=== PATIENT | male | born 1975 | race Caucasian/White ===

== ENCOUNTER 2018-10-05 17:55 | Emergency (ER) | payer MEDICARE ==
[2018-10-05] MEDS ORDERED: KETOROLAC 30 MG/ML VIAL IVP STA (18:36)
[2018-10-05] MEDS ORDERED: SODIUM CHLORIDE 0.9% 1,000 ML IV ONE (18:36)
[2018-10-05] MEDS ORDERED: HYDROmorphone 1 MG/ML CARPUJECT IVP STA (18:36)
--- NOTE | 2018-10-05 18:38 | ED Physician Documentation ---
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 He has a history of renal colic and has required intervention before whose had one day of general abdominal pain and bloating now radiating to the right flank associated with decreased appetite but no nausea or vomiting. He has urinary frequency but no dysuria. He denies any trouble with his bowel movements. He says he feels that this is consistent with prior episodes of renal colic. No gross hematuria.) Review of Systems Ten Systems: 10 systems reviewed and negative Constitutional: denies: Fever, Chills Cardiac: reports: Reviewed and negative Respiratory: reports: Reviewed and negative PD PAST MEDICAL HISTORY - Past Medical History Past Medical History: Yes Cardiovascular: None Respiratory: None Neuro: Other Endocrine/Autoimmune: None GI: None : Kidney stones HEENT: None Psych: None Musculoskeletal: None Derm: None Other Past Medical History: spastic parhesis - Past Surgical History Past Surgical History: Yes Ortho: ACL reconstruction, Spine surgery - Present Medications Home Medications: Ambulatory Orders Medication Instructions Recorded Confirmed Ibuprofen [Motrin] 800 mg PO Q8H PRN #30 tablet 10/05/18 Oxycodone HCl/Acetaminophen 1 - 2 each PO Q6H PRN #14 tablet 10/05/18 [Percocet 5-325 mg Tablet] Tamsulosin [Flomax] 0.4 mg PO DAILY #14 capsule 10/05/18 - Allergies Allergies/Adverse Reactions: Allergies Allergy/AdvReac Type Severity Reaction Status Date / Time codeine Allergy Rash Verified 10/05/18 18:11 - Social History Does the pt smoke?: No Smoking Status: Never smoker Does the pt drink ETOH?: Yes ETOH Use: Beer, Liquor Does the pt have substance abuse?: No - Family History Family history: reports: Non contributory - Immunizations Immunizations are current?: Yes - POLST Patient has POLST: No PD ED PE NORMAL - Vitals Vital signs reviewed: Yes - General General: Alert and oriented X 3, No acute distress - Abdomen Abdomen: Normal bowel sounds, Soft, Non tender - Back Back: No CVA TTP, No spinal TTP - Derm Derm: Normal color, Warm and dry - Neuro Neuro: Alert and oriented X 3, Normal speech Results - Vitals Vitals: Vital Signs - 24 hr 10/05/18 18:09 Temperature 36.6 C Heart Rate 74 Respiratory 15 Rate Blood Pressure 136/101 H O2 Saturation 98 Oxygen O2 Source CPAP - Labs Labs: Laboratory Tests 10/05/18 10/05/18 10/05/18 18:35 18:39 18:39 WBC 8.6 RBC 4.80 Hgb 15.3 Hct 45.1 MCV 93.8 MCH 31.8 H MCHC 33.9 RDW 14.2 Plt Count 282 MPV 8.6 Neut # (Auto) 6.4 Lymph # (Auto) 1.5 [place] # (Auto) 0.6 Eos # (Auto) 0.0 Baso # (Auto) 0.1 Absolute Nucleated RBC 0.00 Nucleated RBC % 0.0 Sodium 137 Potassium 3.6 Chloride 101 Carbon Dioxide 26 Anion Gap 10.0 BUN 16 Creatinine 0.9 Estimated GFR (MDRD) 92 Glucose 118 H Calcium 9.2 Total Bilirubin 0.8 AST 30 ALT 27 Alkaline Phosphatase 71 Total Protein 7.4 Albumin 4.4 Globulin 3.0 Albumin/Globulin Ratio 1.5 Lipase 38 Urine Color DARK YELLOW Urine Clarity HAZY Urine pH 7.5 Ur Specific [place] 1.015 Urine Protein TRACE Urine Glucose (UA) NEGATIVE Urine Ketones TRACE Urine Occult Blood LARGE H Urine Nitrite NEGATIVE Urine Bilirubin NEGATIVE Urine Urobilinogen 1 (NORMAL) Ur Leukocyte Esterase TRACE H Urine RBC TNTC H Urine WBC 6-10 H Ur Squamous Epith Cells NONE SEEN Urine Bacteria None Seen Ur Microscopic Review INDICATED Urine Culture Comments INDICATED - Rads (name of study) CT KUB Radiology: EMP read contemporaneously (Mildly obstructing 3 mm distal right UVJ stone, small bilateral infrarenal calculi) PD MEDICAL DECISION MAKING - ED course ED course: 42-year-old gentleman with history of renal colic presents with symptoms concerning for same proven on CT which was done because it has been a long time since he has had a symptomatic kidney stone and he has needed them removed in the past. He was pain-free after Toradol and Dilaudid here. He was also administered Flomax. Departure - Departure Clinical Impression: Renal colic Condition: Good Instructions: ED Stone Renal W Colic Prescriptions: Ibuprofen [Motrin] 800 mg PO Q8H PRN #30 tablet PRN Reason: PAIN &/OR FEVER Oxycodone HCl/Acetaminophen [Percocet 5-325 mg Tablet] 1 - 2 each PO Q6H PRN #14 tablet PRN Reason: pain Tamsulosin [Flomax] 0.4 mg PO DAILY #14 capsule Comments: If not better within a week, follow-up with urologist with a copy of the CAT scan on CD. You could go back to [facility] where he were treated before, another option would be the [facility]. Their phone number is [phone]. Return if worse or if pain is uncontrolled. Do not drink or drive while taking narcotic pain medication. Note that many narcotic pain relievers also contain Tylenol/acetaminophen. Please ensure that your total dose of acetaminophen from all sources does not exceed 3 g (3000 mg) per day. You may get constipated while on this medication. Take a stool softener such as Colace twice a day while you are on it. Also add an [id number] laxative such as senna or MiraLAX on any day that you do not have a bowel movement. If you received a narcotic pain medication or sedative while in the emergency department, do not drive for the next 24 hours. Your blood pressure was elevated today on check into the emergency department. This does not mean that you have hypertension, it is a common phenomenon to come to the emergency department and have elevated blood pressure. I recommend that you see your primary care physician within the week to have it rechecked when you are feeling better.
[2018-10-05 18:54] LABS: BASOPHILS # (AUTO) 0.1 10^3/uL (0.0-0.1); BASOPHILS % (AUTO) 0.7 %; EOSINOPHILS % (AUTO) 0.4 %; HGB - HEMOGLOBIN 15.3 g/dL (14.0-18.0); LYMPHOCYTES # (AUTO) 1.5 10^3/uL (1.5-3.5); LYMPHOCYTES % (AUTO) 17.1 %; MEAN CORPUSCULAR HEMOGLOBIN 31.8 pg (27.0-31.0); MEAN CORPUSCULAR HGB CONC 33.9 g/dL (32.0-36.0); MEAN CORPUSCULAR VOLUME 93.8 fL (80.0-94.0); MEAN PLATELET VOLUME 8.6 fL (7.4-11.4); MONOCYTES # (AUTO) 0.6 10^3/uL (0.0-1.0); MONOCYTES % (AUTO) 7.4 %; NEUTROPHILS # (AUTO) 6.4 10^3/uL (1.5-6.6); NEUTROPHILS % (AUTO) 74.4 %; PLT - PLATELET COUNT 282 10^3/uL (130-450); RED CELL DISTRIBUTION WIDTH 14.2 % (12.0-15.0); WHITE BLOOD COUNT 8.6 x10^3/uL (4.8-10.8)
[2018-10-05 19:06] LABS: ALBUMIN 4.4 g/dL (3.2-5.5); ALBUMIN/GLOBULIN RATIO 1.5 (1.0-2.2); BILIRUBIN,TOTAL 0.8 mg/dL (0.2-1.0); CALCIUM 9.2 mg/dL (8.5-10.3); CREATININE 0.9 mg/dL (0.6-1.2); TOTAL PROTEIN 7.4 g/dL (6.7-8.2)
[2018-10-05 19:13] LABS: BILIRUBIN,URINE NEGATIVE (NEGATIVE); GLUCOSE, URINE (UA) NEGATIVE (NEGATIVE); KETONES,URINE (UA) TRACE mg/dL (NEGATIVE); LEUKOCYTE ESTERASE, URINE TRACE (NEGATIVE); NITRITE,URINE NEGATIVE (NEGATIVE); OCCULT BLOOD,URINE LARGE (NEGATIVE); PH,URINE 7.5 PH (5.0-7.5); PROTEIN,URINE TRACE mg/dL (NEGATIVE); UROBILINOGEN,URINE 1 (NORMAL) E.U./dL (NORMAL)
[2018-10-05] MEDS ORDERED: TAMSULOSIN 0.4 MG CAPSULE PO STA (19:16)
[2018-10-05 19:29] LABS: CLARITY,URINE HAZY (CLEAR)
[2018-10-05 19:30] LABS: BACTERIA,URINE None Seen /HPF (None Seen); RBC,URINE TNTC /HPF (0-5); SQUAMOUS EPITHELIAL CELL,UR NONE SEEN (<= Few)
--- NOTE | 2018-10-05 19:36 | CT Report ---
Reason: abd/R flank pain Procedure Date: 10/05/2018 Accession Number: [id number] / [id number] Procedure: CT - Abdomen/Pelvis WO CPT Code: FULL RESULT: EXAM: CT ABDOMEN AND PELVIS (CT KUB) EXAM DATE: 10/05/2018 07:05 PM. CLINICAL HISTORY: Abd/R flank pain. COMPARISONS: None. TECHNIQUE: Routine axial helical CT imaging was performed through the abdomen and pelvis without IV contrast. Reconstructions: Coronal and sagittal. In accordance with CT protocol optimization, one or more of the following dose reduction techniques were utilized for this exam: automated exposure control, adjustment of mA and/or KV based on patient size, or use of iterative reconstructive technique. FINDINGS: Lung Bases: Unremarkable. Right Kidney/Ureter: There are at least 6 intrarenal calculi scattered throughout the kidney with the largest at the anterior lower pole measuring up to 4 mm. There is mild right hydronephrosis and hydroureter. There is minimal proximal periureteral fat stranding. There is a 3 mm rounded distal right ureteral calculus at the mid femoral head level just prior to the ureterovesical junction. Left Kidney/Ureter: There are at least 3 left intrarenal calculi measuring up to 3 mm. No hydronephrosis or hydroureter. No perinephric or periureteral fat stranding. No ureteral calculus. Other Solid Organs: Noncontrast images of the solid organs are grossly unremarkable. Gallbladder/Bile Ducts: Unremarkable. Peritoneal Cavity: Unopacified stomach and small bowel are nondistended. The appendix is normal. There is a small amount of formed stool throughout the colon. There is no focal pericolonic fat stranding. There is no lymphadenopathy, ascites, or pneumoperitoneum. Pelvic Organs: Small volume bladder without stones. Prostate gland and seminal vesicles unremarkable. Vasculature: Unremarkable. Other: Chronic bilateral L5 pars interarticularis defects. Grade 1 anterolisthesis L5 on S1. Bone graft material at L5-S1 disk space. Bilateral pedicle screws and longitudinal stabilization rods spanning L5-S1. Prominent Schmorl's node formation at the lower endplate of L3. IMPRESSION: 1. Mildly obstructing 3 mm distal right ureteral calculus just prior to the ureterovesical junction. Plain abdominal radiograph could be obtained to determine the radiopacity of this stone for follow-up. 2. Small bilateral intrarenal calculi. RADIA
[2018-10-05] MEDS ORDERED: oxyCODONE/ACET 5/325 Prepack 4 PO STA (19:44)
[2018-10-05 19:46] VITALS: BP 118/72
== END 2018-10-05 19:59 | disposition home or self-care (01) ==
LOC: ED 17:55
DX: N20.0 Calculus of kidney (principal); Z87.442 Personal history of urinary calculi
CPT/HCPCS: 36415; 74176; 80053; 81001; 83690; 85025; 87086; 96361; 96374; 99283; A9270; J1170; 81003

== ENCOUNTER 2018-10-07 05:37 | Emergency (ER) | payer MEDICARE ==
--- NOTE | 2018-10-07 05:48 | ED Physician Documentation ---
PD HPI ABD PAIN - Stated complaint Stated Complaint: SIDE PX - Chief complaint Chief Complaint: Abd Pain - History obtained from History obtained from: Patient - History of Present Illness Timing - onset: How many days ago (3) Timing - details: Abrupt onset, Intermittant, Waxing and waning Pain level now: 6 Quality: Pain Radiation: Right flank Improved by: No: Eating, Laying still, Vomiting, BM, Position, Meds Worsened by: No: Eating, Moving, Breathing, Position, Palpation Associated symptoms: Nausea. No: Fever, Vomiting, Dysuria Similar symptoms before: Diagnosis (Renal colic) Recently seen: Emergency Dept - Additional information Additional information: T+R from this ED 2 days ago for same symptoms, diagnosed with renal colic. Returns due to worsening right flank pain, episodic. Review of Systems Constitutional: reports: Reviewed and negative Cardiac: reports: Reviewed and negative Respiratory: reports: Reviewed and negative GI: reports: Abdominal Pain, Nausea. denies: Vomiting : denies: Dysuria, Frequency PD PAST MEDICAL HISTORY - Past Medical History Cardiovascular: None Respiratory: None Neuro: Other Endocrine/Autoimmune: None GI: None : Kidney stones HEENT: None Psych: None Musculoskeletal: None Derm: None - Past Surgical History Past Surgical History: Yes Ortho: ACL reconstruction, Spine surgery - Present Medications Home Medications: Ambulatory Orders Medication Instructions Recorded Confirmed HYDROmorphone [Dilaudid] 2 mg PO Q4-6H PRN #15 tablet 10/05/18 Ibuprofen [Motrin] 800 mg PO Q8H PRN #30 tablet 10/05/18 Tamsulosin [Flomax] 0.4 mg PO DAILY #14 capsule 10/05/18 HYDROmorphone [Dilaudid] 2 - 4 mg PO Q4-6H PRN #20 tablet 10/07/18 Ondansetron Odt [Zofran] 4 mg TL Q6H PRN #14 tablet 10/07/18 - Allergies Allergies/Adverse Reactions: Allergies Allergy/AdvReac Type Severity Reaction Status Date / Time codeine Allergy Rash Verified 10/07/18 05:49 - Social History Does the pt smoke?: No Smoking Status: Never smoker Does the pt drink ETOH?: Yes Does the pt have substance abuse?: No - Immunizations Immunizations are current?: Yes - POLST Patient has POLST: No PD ED PE NORMAL - Vitals Vital signs reviewed: Yes - General General: Alert and oriented X 3, Well developed/nourished, Other (appears to be in moderate painful discomfort) - Cardiac Cardiac: RRR, No murmur - Respiratory Respiratory: No respiratory distress, Clear bilaterally - Abdomen Abdomen: Soft, Non tender - Back Back: No CVA TTP - Derm Derm: Normal color, Warm and dry, No rash Results - Vitals Vitals: Oxygen O2 Source Room air PD MEDICAL DECISION MAKING - ED course Complexity details: reviewed results, re-evaluated patient, considered differential, d/w patient, d/w family ED course: appears comfortable after IV fluids, dilaudid, and zofran. patient reports good symptomatic relief and is comfortable with d/c home Departure - Departure Disposition: Home, Self Care Clinical Impression: Renal colic Condition: Good Instructions: ED Stone Renal W Colic Follow-Up: Linda Banerjee MD [Primary Care Provider] - Prescriptions: HYDROmorphone [Dilaudid] 2 - 4 mg PO Q4-6H PRN #20 tablet PRN Reason: Pain Ondansetron Odt [Zofran] 4 mg TL Q6H PRN #14 tablet PRN Reason: Nausea / Vomiting Discharge Date/Time: 10/07/18 08:10
[2018-10-07] MEDS ORDERED: ONDANSETRON 4 MG/2 ML VIAL IVP STA (06:01)
[2018-10-07] MEDS ORDERED: HYDROmorphone 1 MG/ML CARPUJECT IVP STA (06:01)
[2018-10-07] MEDS ORDERED: SODIUM CHLORIDE 0.9% 1,000 ML IV STA (06:01)
[2018-10-07] MEDS ORDERED: KETOROLAC 30 MG/ML VIAL IVP STA (06:01)
[2018-10-07 06:51] VITALS: BP 110/65
== END 2018-10-07 08:10 | disposition home or self-care (01) ==
LOC: ED 05:37
DX: N23 Unspecified renal colic (principal); R11.0 Nausea; Z87.442 Personal history of urinary calculi
CPT/HCPCS: 96361; 96374; 96375; 99283; J1170

== ENCOUNTER 2019-03-27 09:04 | Outpatient (CLI) | payer MEDICAID, MEDICARE ==
[2019-03-27 17:46] LABS: BASOPHILS % (AUTO) 0.8 %; EOSINOPHILS # (AUTO) 0.2 10^3/uL (0.0-0.7); EOSINOPHILS % (AUTO) 4.1 %; LYMPHOCYTES # (AUTO) 1.5 10^3/uL (1.5-3.5); LYMPHOCYTES % (AUTO) 31.1 %; MEAN CORPUSCULAR HEMOGLOBIN 30.4 pg (27.0-31.0); MEAN CORPUSCULAR HGB CONC 31.4 g/dL (32.0-36.0); MEAN CORPUSCULAR VOLUME 96.7 fL (80.0-94.0); MEAN PLATELET VOLUME 10.2 fL (7.4-11.4); MONOCYTES # (AUTO) 0.6 10^3/uL (0.0-1.0); MONOCYTES % (AUTO) 13.1 %; NEUTROPHILS # (AUTO) 2.4 10^3/uL (1.5-6.6); NEUTROPHILS % (AUTO) 50.7 %; PLT - PLATELET COUNT 296 10^3/uL (130-450); RED BLOOD COUNT 4.28 10^6/uL (4.70-6.10); RED CELL DISTRIBUTION WIDTH 14.1 % (12.0-15.0); WHITE BLOOD COUNT 4.8 x10^3/uL (4.8-10.8)
[2019-03-27 18:01] LABS: ALBUMIN 4.1 g/dL (3.2-5.5); ALBUMIN/GLOBULIN RATIO 1.1 (1.0-2.2); BILIRUBIN,TOTAL 0.5 mg/dL (0.2-1.0); CALCIUM 9.4 mg/dL (8.5-10.3); CREATININE 0.9 mg/dL (0.6-1.2); TOTAL PROTEIN 7.7 g/dL (6.7-8.2)
== END 2019-03-27 09:05 | disposition home or self-care (01) ==
LOC: LAB.S 09:04
PROVIDERS: ATTEND Internal Medicine Hematology & Oncology
DX: C18.9 Malignant neoplasm of colon, unspecified (principal)
CPT/HCPCS: 36415; 80053; 85025

== ENCOUNTER 2019-04-10 08:16 | Outpatient (CLI) | payer MEDICARE ==
[2019-04-10 09:58] LABS: BASOPHILS % (AUTO) 0.7 %; EOSINOPHILS # (AUTO) 0.2 10^3/uL (0.0-0.7); EOSINOPHILS % (AUTO) 2.6 %; HGB - HEMOGLOBIN 13.4 g/dL (14.0-18.0); LYMPHOCYTES % (AUTO) 33.5 %; MEAN CORPUSCULAR VOLUME 93.7 fL (80.0-94.0); MEAN PLATELET VOLUME 10.4 fL (7.4-11.4); MONOCYTES # (AUTO) 0.9 10^3/uL (0.0-1.0); MONOCYTES % (AUTO) 15.2 %; NEUTROPHILS # (AUTO) 2.9 10^3/uL (1.5-6.6); NEUTROPHILS % (AUTO) 47.5 %; PLT - PLATELET COUNT 233 10^3/uL (130-450); RED BLOOD COUNT 4.47 10^6/uL (4.70-6.10); RED CELL DISTRIBUTION WIDTH 14.4 % (12.0-15.0); WHITE BLOOD COUNT 6.1 x10^3/uL (4.8-10.8)
[2019-04-10 10:11] LABS: ALBUMIN 3.8 g/dL (3.2-5.5); ALBUMIN/GLOBULIN RATIO 1.1 (1.0-2.2); BILIRUBIN,TOTAL 0.3 mg/dL (0.2-1.0); CALCIUM 9.2 mg/dL (8.5-10.3); TOTAL PROTEIN 7.2 g/dL (6.7-8.2)
== END 2019-04-10 08:17 | disposition home or self-care (01) ==
LOC: LAB.S 08:16
PROVIDERS: ATTEND Internal Medicine Hematology & Oncology
DX: C18.9 Malignant neoplasm of colon, unspecified (principal)
CPT/HCPCS: 36415; 80053; 85025

== ENCOUNTER 2019-04-24 09:22 | Outpatient (CLI) | payer MEDICARE ==
[2019-04-24 18:07] LABS: BASOPHILS % (AUTO) 0.4 %; EOSINOPHILS # (AUTO) 0.1 10^3/uL (0.0-0.7); EOSINOPHILS % (AUTO) 2.4 %; HGB - HEMOGLOBIN 13.6 g/dL (14.0-18.0); LYMPHOCYTES # (AUTO) 1.8 10^3/uL (1.5-3.5); LYMPHOCYTES % (AUTO) 36.2 %; MEAN CORPUSCULAR HEMOGLOBIN 28.8 pg (27.0-31.0); MEAN CORPUSCULAR HGB CONC 30.9 g/dL (32.0-36.0); MEAN PLATELET VOLUME 10.9 fL (7.4-11.4); MONOCYTES # (AUTO) 0.6 10^3/uL (0.0-1.0); MONOCYTES % (AUTO) 11.4 %; NEUTROPHILS # (AUTO) 2.4 10^3/uL (1.5-6.6); NEUTROPHILS % (AUTO) 49.4 %; PLT - PLATELET COUNT 163 10^3/uL (130-450); RED BLOOD COUNT 4.73 10^6/uL (4.70-6.10); RED CELL DISTRIBUTION WIDTH 14.8 % (12.0-15.0); WHITE BLOOD COUNT 4.9 x10^3/uL (4.8-10.8)
[2019-04-24 18:35] LABS: ALBUMIN 4.2 g/dL (3.2-5.5); ALBUMIN/GLOBULIN RATIO 1.1 (1.0-2.2); BILIRUBIN,TOTAL 0.4 mg/dL (0.2-1.0); CALCIUM 9.4 mg/dL (8.5-10.3); CREATININE 0.9 mg/dL (0.6-1.2); TOTAL PROTEIN 7.9 g/dL (6.7-8.2)
== END 2019-04-24 09:23 | disposition home or self-care (01) ==
LOC: LAB.S 09:22
PROVIDERS: ATTEND Internal Medicine Hematology & Oncology
DX: C18.9 Malignant neoplasm of colon, unspecified (principal)
CPT/HCPCS: 36415; 80053; 85025

== ENCOUNTER 2019-05-08 10:26 | Outpatient (CLI) | payer MEDICARE ==
[2019-05-08 17:20] LABS: BASOPHILS % (AUTO) 0.4 %; EOSINOPHILS # (AUTO) 0.1 10^3/uL (0.0-0.7); EOSINOPHILS % (AUTO) 1.1 %; HGB - HEMOGLOBIN 13.8 g/dL (14.0-18.0); LYMPHOCYTES # (AUTO) 1.5 10^3/uL (1.5-3.5); LYMPHOCYTES % (AUTO) 31.6 %; MEAN CORPUSCULAR HEMOGLOBIN 29.7 pg (27.0-31.0); MEAN CORPUSCULAR VOLUME 92.9 fL (80.0-94.0); MEAN PLATELET VOLUME 10.6 fL (7.4-11.4); MONOCYTES # (AUTO) 0.7 10^3/uL (0.0-1.0); NEUTROPHILS # (AUTO) 2.4 10^3/uL (1.5-6.6); NEUTROPHILS % (AUTO) 51.5 %; PLT - PLATELET COUNT 198 10^3/uL (130-450); RED BLOOD COUNT 4.64 10^6/uL (4.70-6.10); RED CELL DISTRIBUTION WIDTH 15.7 % (12.0-15.0); WHITE BLOOD COUNT 4.7 x10^3/uL (4.8-10.8)
[2019-05-08 17:46] LABS: ALBUMIN 4.2 g/dL (3.2-5.5); ALBUMIN/GLOBULIN RATIO 1.1 (1.0-2.2); BILIRUBIN,TOTAL 0.4 mg/dL (0.2-1.0); CALCIUM 9.1 mg/dL (8.5-10.3); CREATININE 0.8 mg/dL (0.6-1.2); TOTAL PROTEIN 7.9 g/dL (6.7-8.2)
== END 2019-05-08 10:27 | disposition home or self-care (01) ==
LOC: LAB.S 10:26
PROVIDERS: ATTEND Internal Medicine Hematology & Oncology
DX: C18.9 Malignant neoplasm of colon, unspecified (principal)
CPT/HCPCS: 36415; 80053; 85025

== ENCOUNTER 2019-05-22 10:24 | Outpatient (CLI) | payer MEDICARE ==
[2019-05-22 18:01] LABS: BASOPHILS % (AUTO) 0.4 %; EOSINOPHILS # (AUTO) 0.1 10^3/uL (0.0-0.7); EOSINOPHILS % (AUTO) 2.4 %; HGB - HEMOGLOBIN 14.3 g/dL (14.0-18.0); LYMPHOCYTES # (AUTO) 1.7 10^3/uL (1.5-3.5); LYMPHOCYTES % (AUTO) 37.2 %; MEAN CORPUSCULAR HGB CONC 32.8 g/dL (32.0-36.0); MEAN CORPUSCULAR VOLUME 91.4 fL (80.0-94.0); MEAN PLATELET VOLUME 11.2 fL (7.4-11.4); MONOCYTES # (AUTO) 0.7 10^3/uL (0.0-1.0); MONOCYTES % (AUTO) 15.8 %; PLT - PLATELET COUNT 141 10^3/uL (130-450); RED BLOOD COUNT 4.77 10^6/uL (4.70-6.10); WHITE BLOOD COUNT 4.5 x10^3/uL (4.8-10.8)
[2019-05-22 18:34] LABS: ALBUMIN 4.1 g/dL (3.2-5.5); ALBUMIN/GLOBULIN RATIO 1.1 (1.0-2.2); ALKALINE PHOSPHATASE 168 IU/L (42-121); ALT ALANINE AMINOTRANSFERASE 134 IU/L (10-60); AST ASPARTATE AMINOTRANSFERASE 96 IU/L (10-42); BILIRUBIN,TOTAL < 0.2 mg/dL (0.2-1.0); BUN - BLOOD UREA NITROGEN 17 mg/dL (6-20); GFR - MDRD 81 (>89); TOTAL PROTEIN 7.8 g/dL (6.7-8.2)
[2019-05-22 18:38] LABS: CALCIUM 9.4 mg/dL (8.5-10.3); CARBON DIOXIDE - CO2 27 mmol/L (21-32); CHLORIDE 104 mmol/L (101-111); GLUCOSE 95 mg/dL (70-100); SODIUM 139 mmol/L (135-145)
== END 2019-05-22 10:25 | disposition home or self-care (01) ==
LOC: LAB.S 10:24
PROVIDERS: ATTEND Internal Medicine Hematology & Oncology
DX: C18.9 Malignant neoplasm of colon, unspecified (principal)
CPT/HCPCS: 36415; 80053; 85025

== ENCOUNTER 2019-06-05 10:10 | Outpatient (CLI) | payer MEDICARE ==
[2019-06-05 17:17] LABS: BASOPHILS % (AUTO) 0.5 %; EOSINOPHILS # (AUTO) 0.1 10^3/uL (0.0-0.7); EOSINOPHILS % (AUTO) 1.9 %; HGB - HEMOGLOBIN 14.1 g/dL (14.0-18.0); LYMPHOCYTES # (AUTO) 1.8 10^3/uL (1.5-3.5); LYMPHOCYTES % (AUTO) 29.8 %; MEAN CORPUSCULAR HEMOGLOBIN 29.7 pg (27.0-31.0); MEAN CORPUSCULAR HGB CONC 32.6 g/dL (32.0-36.0); MEAN CORPUSCULAR VOLUME 91.1 fL (80.0-94.0); MEAN PLATELET VOLUME 11.4 fL (7.4-11.4); MONOCYTES % (AUTO) 16.4 %; NEUTROPHILS % (AUTO) 51.2 %; PLT - PLATELET COUNT 128 10^3/uL (130-450); RED BLOOD COUNT 4.74 10^6/uL (4.70-6.10); RED CELL DISTRIBUTION WIDTH 17.8 % (12.0-15.0); WHITE BLOOD COUNT 5.9 x10^3/uL (4.8-10.8)
[2019-06-05 18:05] LABS: BILIRUBIN,TOTAL 0.3 mg/dL (0.2-1.0); CALCIUM 9.2 mg/dL (8.5-10.3); CREATININE 0.8 mg/dL (0.6-1.2); TOTAL PROTEIN 7.9 g/dL (6.7-8.2)
== END 2019-06-05 10:11 | disposition home or self-care (01) ==
LOC: LAB.S 10:10
PROVIDERS: ATTEND Internal Medicine Hematology & Oncology
DX: C18.9 Malignant neoplasm of colon, unspecified (principal)
CPT/HCPCS: 36415; 80053; 85025

== ENCOUNTER 2019-06-19 10:54 | Outpatient (CLI) | payer MEDICARE ==
[2019-06-19 18:08] LABS: BASOPHILS % (AUTO) 0.4 %; EOSINOPHILS # (AUTO) 0.1 10^3/uL (0.0-0.7); HGB - HEMOGLOBIN 14.2 g/dL (14.0-18.0); LYMPHOCYTES # (AUTO) 1.8 10^3/uL (1.5-3.5); LYMPHOCYTES % (AUTO) 25.4 %; MEAN CORPUSCULAR HGB CONC 31.8 g/dL (32.0-36.0); MEAN CORPUSCULAR VOLUME 94.1 fL (80.0-94.0); MEAN PLATELET VOLUME 10.8 fL (7.4-11.4); MONOCYTES # (AUTO) 0.8 10^3/uL (0.0-1.0); NEUTROPHILS # (AUTO) 4.3 10^3/uL (1.5-6.6); NEUTROPHILS % (AUTO) 60.9 %; PLT - PLATELET COUNT 169 10^3/uL (130-450); RED BLOOD COUNT 4.74 10^6/uL (4.70-6.10); RED CELL DISTRIBUTION WIDTH 20.3 % (12.0-15.0)
[2019-06-19 18:15] LABS: ALBUMIN 4.1 g/dL (3.2-5.5); ALBUMIN/GLOBULIN RATIO 1.1 (1.0-2.2); BILIRUBIN,TOTAL 0.6 mg/dL (0.2-1.0); CALCIUM 9.7 mg/dL (8.5-10.3); TOTAL PROTEIN 7.8 g/dL (6.7-8.2)
[2019-06-19 19:18] LABS: PLATELET ESTIMATE, MANUAL NORMAL (130-450,000) (NORMAL); PLATELET MORPHOLOGY NORMAL APPEARANCE (NORMAL); RBC MORPHOLOGY (MULTIPLE) 1+ ANISOCYTOSIS (NORMAL)
== END 2019-06-19 10:55 | disposition home or self-care (01) ==
LOC: LAB.S 10:54
PROVIDERS: ATTEND Internal Medicine Hematology & Oncology
DX: C18.9 Malignant neoplasm of colon, unspecified (principal)
CPT/HCPCS: 36415; 80053; 85025

== ENCOUNTER 2019-07-03 10:05 | Outpatient (CLI) | payer MEDICAID, MEDICARE ==
[2019-07-03 17:19] LABS: BASOPHILS % (AUTO) 0.5 %; EOSINOPHILS # (AUTO) 0.1 10^3/uL (0.0-0.7); EOSINOPHILS % (AUTO) 1.7 %; HGB - HEMOGLOBIN 13.4 g/dL (14.0-18.0); LYMPHOCYTES # (AUTO) 1.5 10^3/uL (1.5-3.5); MEAN CORPUSCULAR HEMOGLOBIN 29.9 pg (27.0-31.0); MEAN CORPUSCULAR HGB CONC 32.8 g/dL (32.0-36.0); MEAN CORPUSCULAR VOLUME 91.3 fL (80.0-94.0); MEAN PLATELET VOLUME 11.1 fL (7.4-11.4); MONOCYTES # (AUTO) 0.6 10^3/uL (0.0-1.0); MONOCYTES % (AUTO) 14.6 %; NEUTROPHILS % (AUTO) 46.7 %; PLT - PLATELET COUNT 149 10^3/uL (130-450); RED BLOOD COUNT 4.48 10^6/uL (4.70-6.10); RED CELL DISTRIBUTION WIDTH 20.3 % (12.0-15.0); WHITE BLOOD COUNT 4.2 x10^3/uL (4.8-10.8)
[2019-07-03 17:30] LABS: ALBUMIN 3.9 g/dL (3.2-5.5); ALBUMIN/GLOBULIN RATIO 1.1 (1.0-2.2); BILIRUBIN,TOTAL 0.7 mg/dL (0.2-1.0); CALCIUM 9.5 mg/dL (8.5-10.3); CREATININE 0.9 mg/dL (0.6-1.2); TOTAL PROTEIN 7.3 g/dL (6.7-8.2)
[2019-07-03 17:43] LABS: PLATELET ESTIMATE, MANUAL NORMAL (130-450,000) (NORMAL); PLATELET MORPHOLOGY NORMAL APPEARANCE (NORMAL); RBC MORPHOLOGY (MULTIPLE) 1+ ANISOCYTOSIS (NORMAL)
== END 2019-07-03 10:06 | disposition home or self-care (01) ==
LOC: LAB.S 10:05
PROVIDERS: ATTEND Internal Medicine Hematology & Oncology
DX: C18.9 Malignant neoplasm of colon, unspecified (principal)
CPT/HCPCS: 36415; 80053; 85025

== ENCOUNTER 2020-10-23 09:14 | Outpatient (CLI) | payer MEDICARE ==
[2020-10-23 16:00] LABS: ALBUMIN 4.4 g/dL (3.2-5.5); ALBUMIN/GLOBULIN RATIO 1.4 (1.0-2.2); BILIRUBIN,TOTAL 0.6 mg/dL (0.2-1.0); CALCIUM 9.4 mg/dL (8.5-10.3); CREATININE 1.2 mg/dL (0.6-1.2); POTASSIUM 4.3 mmol/L (3.5-5.0); TOTAL PROTEIN 7.5 g/dL (6.7-8.2)
[2020-10-23 18:30] LABS: BASOPHILS % (AUTO) 1.4 %; EOSINOPHILS % (AUTO) 3.6 %; HCT - HEMATOCRIT 46.6 % (42.0-52.0); HGB - HEMOGLOBIN 15.2 g/dL (14.0-18.0); MEAN CORPUSCULAR HEMOGLOBIN 31.8 pg (27.0-31.0); MEAN CORPUSCULAR HGB CONC 32.6 g/dL (32.0-36.0); MEAN CORPUSCULAR VOLUME 97.5 fL (80.0-94.0); MEAN PLATELET VOLUME 10.6 fL (7.4-11.4); MONOCYTES % (AUTO) 10.3 %; NEUTROPHILS % (AUTO) 51.5 %; PLT - PLATELET COUNT 244 10^3/uL (130-450); RED BLOOD COUNT 4.78 10^6/uL (4.70-6.10); RED CELL DISTRIBUTION WIDTH 13.2 % (12.0-15.0); WHITE BLOOD COUNT 4.4 x10^3/uL (4.8-10.8)
[2020-10-23 18:40] LABS: ABNORMAL LYMPHS % (MANUAL) 0 %
[2020-10-23 21:05] LABS: BAND NEUTROPHILS % (MANUAL) 1 %; EOSINOPHILS # (MANUAL) 0.2 10^3/uL (0-0.7); LYMPHOCYTES # (MANUAL) 1.4 10^3/uL (1.5-3.5); LYMPHOCYTES % (MANUAL) 24 %; MONOCYTES # (MANUAL) 0.3 10^3/uL (0.0-1.0); NEUTROPHILS # (MANUAL) 2.5 10^3/uL (1.5-6.6); REACTIVE LYMPHS % (MANUAL) 8 %
[2020-10-23 21:06] LABS: DIFFERENTIAL COMMENT MANUAL DIFFERENTIAL; PLATELET ESTIMATE, MANUAL NORMAL (130-450,000) (NORMAL); PLATELET MORPHOLOGY NORMAL APPEARANCE (NORMAL); RBC MORPHOLOGY (MULTIPLE) NORMAL APPEARANCE (NORMAL); WBC MORPHOLOGY (MULTIPLE) NORMAL APPEARANCE (NORMAL)
== END 2020-10-23 09:15 | disposition home or self-care (01) ==
LOC: LAB.S 09:14
PROVIDERS: ATTEND Internal Medicine Hematology & Oncology
DX: C18.9 Malignant neoplasm of colon, unspecified (principal)
CPT/HCPCS: 36415; 80053; 85025

== ENCOUNTER 2020-11-06 09:43 | Outpatient (CLI) | payer MEDICARE ==
[2020-11-06 15:14] LABS: BASOPHILS % (AUTO) 0.6 %; EOSINOPHILS # (AUTO) 0.1 10^3/uL (0.0-0.7); EOSINOPHILS % (AUTO) 2.1 %; HCT - HEMATOCRIT 44.8 % (42.0-52.0); HGB - HEMOGLOBIN 14.9 g/dL (14.0-18.0); LYMPHOCYTES # (AUTO) 1.8 10^3/uL (1.5-3.5); LYMPHOCYTES % (AUTO) 26.9 %; MEAN CORPUSCULAR HGB CONC 33.3 g/dL (32.0-36.0); MEAN CORPUSCULAR VOLUME 96.3 fL (80.0-94.0); MEAN PLATELET VOLUME 10.2 fL (7.4-11.4); MONOCYTES # (AUTO) 0.6 10^3/uL (0.0-1.0); MONOCYTES % (AUTO) 9.5 %; NEUTROPHILS # (AUTO) 4.1 10^3/uL (1.5-6.6); NEUTROPHILS % (AUTO) 60.5 %; PLT - PLATELET COUNT 282 10^3/uL (130-450); RED BLOOD COUNT 4.65 10^6/uL (4.70-6.10); RED CELL DISTRIBUTION WIDTH 13.7 % (12.0-15.0); WHITE BLOOD COUNT 6.8 x10^3/uL (4.8-10.8)
[2020-11-06 15:32] LABS: ALBUMIN 4.4 g/dL (3.2-5.5); ALBUMIN/GLOBULIN RATIO 1.4 (1.0-2.2); BILIRUBIN,TOTAL 0.6 mg/dL (0.2-1.0); CALCIUM 9.2 mg/dL (8.5-10.3); CREATININE 1.1 mg/dL (0.6-1.2); POTASSIUM 3.7 mmol/L (3.5-5.0); TOTAL PROTEIN 7.6 g/dL (6.7-8.2)
== END 2020-11-06 09:44 | disposition home or self-care (01) ==
LOC: LAB.S 09:43
PROVIDERS: ATTEND Internal Medicine
DX: C19 Malignant neoplasm of rectosigmoid junction (principal); C78.7 Secondary malignant neoplasm of liver and intrahepatic bile duct; C77.9 Secondary and unspecified malignant neoplasm of lymph node, unspecified; G62.0 Drug-induced polyneuropathy
CPT/HCPCS: 36415; 80053; 85025

== ENCOUNTER 2020-11-20 09:46 | Outpatient (CLI) | payer MEDICARE ==
[2020-11-20 15:19] LABS: ALBUMIN 4.2 g/dL (3.2-5.5); ALBUMIN/GLOBULIN RATIO 1.4 (1.0-2.2); BILIRUBIN,TOTAL 0.4 mg/dL (0.2-1.0); CALCIUM 9.2 mg/dL (8.5-10.3); CREATININE 1.1 mg/dL (0.6-1.2); POTASSIUM 3.8 mmol/L (3.5-5.0); TOTAL PROTEIN 7.3 g/dL (6.7-8.2)
[2020-11-20 16:08] LABS: BASOPHILS % (AUTO) 0.7 %; EOSINOPHILS # (AUTO) 0.1 10^3/uL (0.0-0.7); EOSINOPHILS % (AUTO) 2.2 %; HCT - HEMATOCRIT 44.3 % (42.0-52.0); HGB - HEMOGLOBIN 14.8 g/dL (14.0-18.0); LYMPHOCYTES # (AUTO) 1.9 10^3/uL (1.5-3.5); LYMPHOCYTES % (AUTO) 34.6 %; MEAN CORPUSCULAR HEMOGLOBIN 32.5 pg (27.0-31.0); MEAN CORPUSCULAR HGB CONC 33.4 g/dL (32.0-36.0); MEAN CORPUSCULAR VOLUME 97.1 fL (80.0-94.0); MEAN PLATELET VOLUME 9.8 fL (7.4-11.4); MONOCYTES # (AUTO) 0.7 10^3/uL (0.0-1.0); MONOCYTES % (AUTO) 12.2 %; NEUTROPHILS # (AUTO) 2.7 10^3/uL (1.5-6.6); NEUTROPHILS % (AUTO) 49.9 %; PLT - PLATELET COUNT 311 10^3/uL (130-450); RED BLOOD COUNT 4.56 10^6/uL (4.70-6.10); RED CELL DISTRIBUTION WIDTH 14.8 % (12.0-15.0); WHITE BLOOD COUNT 5.3 x10^3/uL (4.8-10.8)
== END 2020-11-20 09:47 | disposition home or self-care (01) ==
LOC: LAB.S 09:46
PROVIDERS: ATTEND Internal Medicine
DX: C19 Malignant neoplasm of rectosigmoid junction (principal)
CPT/HCPCS: 36415; 80053; 85025

== ENCOUNTER 2020-12-18 09:45 | Outpatient (CLI) | payer MEDICARE ==
[2020-12-18 14:38] LABS: BASOPHILS # (AUTO) 0.1 10^3/uL (0.0-0.1); BASOPHILS % (AUTO) 1.3 %; EOSINOPHILS # (AUTO) 0.3 10^3/uL (0.0-0.7); EOSINOPHILS % (AUTO) 6.4 %; HCT - HEMATOCRIT 44.2 % (42.0-52.0); HGB - HEMOGLOBIN 14.5 g/dL (14.0-18.0); LYMPHOCYTES # (AUTO) 1.7 10^3/uL (1.5-3.5); LYMPHOCYTES % (AUTO) 36.7 %; MEAN CORPUSCULAR HEMOGLOBIN 32.7 pg (27.0-31.0); MEAN CORPUSCULAR HGB CONC 32.8 g/dL (32.0-36.0); MEAN CORPUSCULAR VOLUME 99.8 fL (80.0-94.0); MEAN PLATELET VOLUME 10.4 fL (7.4-11.4); MONOCYTES # (AUTO) 0.5 10^3/uL (0.0-1.0); MONOCYTES % (AUTO) 11.6 %; NEUTROPHILS % (AUTO) 43.6 %; PLT - PLATELET COUNT 287 10^3/uL (130-450); RED BLOOD COUNT 4.43 10^6/uL (4.70-6.10); RED CELL DISTRIBUTION WIDTH 16.4 % (12.0-15.0); WHITE BLOOD COUNT 4.7 x10^3/uL (4.8-10.8)
[2020-12-18 15:18] LABS: ALBUMIN 4.3 g/dL (3.2-5.5); ALBUMIN/GLOBULIN RATIO 1.5 (1.0-2.2); BILIRUBIN,TOTAL 0.7 mg/dL (0.2-1.0); CALCIUM 8.9 mg/dL (8.5-10.3); CREATININE 0.9 mg/dL (0.6-1.2); POTASSIUM 3.7 mmol/L (3.5-5.0); TOTAL PROTEIN 7.1 g/dL (6.7-8.2)
== END 2020-12-18 09:46 | disposition home or self-care (01) ==
LOC: LAB.S 09:45
PROVIDERS: ATTEND Internal Medicine
DX: C19 Malignant neoplasm of rectosigmoid junction (principal)
CPT/HCPCS: 36415; 80053; 85025

== ENCOUNTER 2021-01-01 09:20 | Outpatient (CLI) | payer MEDICARE ==
[2021-01-01 15:34] LABS: BASOPHILS # (AUTO) 0.1 10^3/uL (0.0-0.1); EOSINOPHILS # (AUTO) 0.2 10^3/uL (0.0-0.7); EOSINOPHILS % (AUTO) 3.1 %; HCT - HEMATOCRIT 45.6 % (42.0-52.0); HGB - HEMOGLOBIN 14.9 g/dL (14.0-18.0); LYMPHOCYTES # (AUTO) 1.7 10^3/uL (1.5-3.5); LYMPHOCYTES % (AUTO) 32.8 %; MEAN CORPUSCULAR HEMOGLOBIN 32.8 pg (27.0-31.0); MEAN CORPUSCULAR HGB CONC 32.7 g/dL (32.0-36.0); MEAN CORPUSCULAR VOLUME 100.4 fL (80.0-94.0); MEAN PLATELET VOLUME 10.4 fL (7.4-11.4); MONOCYTES # (AUTO) 0.5 10^3/uL (0.0-1.0); MONOCYTES % (AUTO) 9.8 %; NEUTROPHILS # (AUTO) 2.8 10^3/uL (1.5-6.6); NEUTROPHILS % (AUTO) 52.9 %; PLT - PLATELET COUNT 264 10^3/uL (130-450); RED BLOOD COUNT 4.54 10^6/uL (4.70-6.10); RED CELL DISTRIBUTION WIDTH 16.7 % (12.0-15.0); WHITE BLOOD COUNT 5.2 x10^3/uL (4.8-10.8)
[2021-01-01 15:49] LABS: ALBUMIN 4.5 g/dL (3.2-5.5); ALBUMIN/GLOBULIN RATIO 1.7 (1.0-2.2); BILIRUBIN,TOTAL 0.6 mg/dL (0.2-1.0); POTASSIUM 3.9 mmol/L (3.5-5.0); TOTAL PROTEIN 7.2 g/dL (6.7-8.2)
== END 2021-01-01 09:21 | disposition home or self-care (01) ==
LOC: LAB.S 09:20
PROVIDERS: ATTEND Internal Medicine
DX: C19 Malignant neoplasm of rectosigmoid junction (principal)
CPT/HCPCS: 36415; 80053; 85025

== ENCOUNTER 2021-01-15 09:11 | Outpatient (CLI) | payer MEDICARE ==
[2021-01-15 14:26] LABS: BASOPHILS % (AUTO) 0.8 %; EOSINOPHILS # (AUTO) 0.2 10^3/uL (0.0-0.7); EOSINOPHILS % (AUTO) 3.1 %; HCT - HEMATOCRIT 43.9 % (42.0-52.0); HGB - HEMOGLOBIN 14.6 g/dL (14.0-18.0); LYMPHOCYTES # (AUTO) 1.9 10^3/uL (1.5-3.5); LYMPHOCYTES % (AUTO) 38.9 %; MEAN CORPUSCULAR HEMOGLOBIN 33.8 pg (27.0-31.0); MEAN CORPUSCULAR HGB CONC 33.3 g/dL (32.0-36.0); MEAN CORPUSCULAR VOLUME 101.6 fL (80.0-94.0); MEAN PLATELET VOLUME 10.4 fL (7.4-11.4); MONOCYTES # (AUTO) 0.5 10^3/uL (0.0-1.0); MONOCYTES % (AUTO) 11.1 %; NEUTROPHILS # (AUTO) 2.2 10^3/uL (1.5-6.6); NEUTROPHILS % (AUTO) 45.7 %; PLT - PLATELET COUNT 275 10^3/uL (130-450); RED BLOOD COUNT 4.32 10^6/uL (4.70-6.10); RED CELL DISTRIBUTION WIDTH 16.3 % (12.0-15.0); WHITE BLOOD COUNT 4.9 x10^3/uL (4.8-10.8)
[2021-01-15 15:04] LABS: ALBUMIN 4.2 g/dL (3.2-5.5); ALBUMIN/GLOBULIN RATIO 1.4 (1.0-2.2); BILIRUBIN,TOTAL 0.5 mg/dL (0.2-1.0); CALCIUM 9.3 mg/dL (8.5-10.3); CREATININE 0.9 mg/dL (0.6-1.2); POTASSIUM 4.2 mmol/L (3.5-5.0); TOTAL PROTEIN 7.1 g/dL (6.7-8.2)
== END 2021-01-15 09:12 | disposition home or self-care (01) ==
LOC: LAB.S 09:11
PROVIDERS: ATTEND Internal Medicine
DX: C19 Malignant neoplasm of rectosigmoid junction (principal)
CPT/HCPCS: 36415; 80053; 85025